=== PATIENT | male | born 1970 | race Caucasian/White ===

== ENCOUNTER 2018-10-16 01:29 | Emergency (ER) | payer OTHER ==
[~2018-10-16] VITALS: Ht 182.9 cm; Wt 122.0 kg
[2018-10-16] MEDS ORDERED: HYDROCODONE/ACETAMINOPHEN 5/325MG TABLET PO ONE (02:45)
[2018-10-16 03:41] VITALS: BP 154/87
== END 2018-10-16 03:42 | disposition home or self-care (01) ==
LOC: ER 01:29
DX: H60.91 Unspecified otitis externa, right ear (principal); E11.9 Type 2 diabetes mellitus without complications; Z90.49 Acquired absence of other specified parts of digestive tract; Z87.891 Personal history of nicotine dependence
CPT/HCPCS: 99283